=== PATIENT | male | born 2000 | race Two or more races ===

== ENCOUNTER 2022-08-05 13:22 | Emergency (ER) | payer MEDICAID ==
[~2022-08-05] VITALS: Ht 170.2 cm; Wt 86.2 kg
--- NOTE | 2022-08-05 14:00 | NUR ---
Updated with plan of care. Cooperative
[2022-08-05] MEDS ORDERED: IV NS 0.9% 1,000 ML BAG IV ONE (14:30)
[2022-08-05] MEDS ORDERED: METOCLOPRAMIDE HCL 10 MG/2 ML VIAL IV ONE (14:30)
[2022-08-05] MEDS ORDERED: METOCLOPRAMIDE HCL 10 MG/2 ML VIAL ONE (14:50)
--- NOTE | 2022-08-05 15:00 | NUR ---
NO obvious distress, NO acute changes VSS
[2022-08-05] MEDS ORDERED: ONDA4TAB5 PO (15:47)
[2022-08-05 15:56] VITALS: BP 105/60
--- NOTE | 2022-08-05 15:57 | NUR ---
Patient discharged to home in stable condition. Written and verbal after care instructions given. Patient verbalizes understanding of instruction.
== END 2022-08-05 15:56 | disposition home or self-care (01) ==
LOC: ER 13:34
DX: R51.9 Headache, unspecified (principal); F20.9 Schizophrenia, unspecified
CPT/HCPCS: 99284; 96374; 70450; 96361; J2765; J7030 ×2